=== PATIENT | female | born 1985 | race Hispanic/Latino ===

== ENCOUNTER 2018-02-26 12:08 | Inpatient (IN) | payer OTHER ==
[2018-02-26] MEDS ORDERED: HYDROcodone/Acetaminophen 5/325 mg Tablet PO PRN ×2 (12:43)
[2018-02-26] MEDS ORDERED: Methylergonovine 0.2 MG/ML VIAL IM PRN (12:43)
[2018-02-26] MEDS ORDERED: Ibuprofen 800 MG TAB PO PRN (12:43)
[2018-02-26] MEDS ORDERED: Butorphanol Tartrate 1 MG/ML VIAL SLOW IVP PRN (12:43)
[2018-02-26] MEDS ORDERED: Ondansetron HCl/PF 4 MG/2 ML Vial IVP PRN ×2 (12:43→12:49)
[2018-02-26] MEDS ORDERED: Promethazine HCl 25 MG/ML VIAL IM PRN (12:43)
[2018-02-26] MEDS ORDERED: NS / Oxytocin 40 units/1000ml 1,000 ML IV PRN (12:43)
[2018-02-26] MEDS ORDERED: Lidocaine 1% (PF) 30 ML VIAL SC PRN (12:43)
[2018-02-26] MEDS ORDERED: Misoprostol 200 MCG TAB PR PRN (12:43)
[2018-02-26] MEDS ORDERED: NS w/ Oxytocin 10 units 500 ML IV SCH (12:45)
[2018-02-26] MEDS ORDERED: Penicillin G Potassium 5 MILL.UNITS in Sodium Chloride 0.9% 100 ML IVPB SCH (12:45)
--- NOTE | 2018-02-26 12:51 | PDOC.LDHP ---
Labor and Delivery H&P Chief complaint: other (Patient is admitted for a medically indicated IOL following the diagnosis of cholestasis in with elevated liver enzymes. ) Current gestational age (weeks): 36 Due date: 03/24/18 Dating criteria: last menstrual period Grav: 4 Para: 2 OB History Details: 2006 at 40weeks 2011 at 40 weeks Current complications: other (Vanishing twins Cholestasis of ) Abnormal US findings: No Past Medical History: anemia, DIAZ, migraines, allergies. Current medications: pre- vitamins, iron Previous surgical history: other (laproscopic IUD removal) Allergies/Adverse Reactions: Allergies Allergy/AdvReac Type Severity Reaction Status Date / Time No Known Allergies Allergy Verified 02/26/18 15:44 Social history: none - Physical Exam Vital signs reviewed and normal: yes Abnormal vital signs: Occ mild elevations in BP General: NAD Heart: RRR Lungs: nonlabored breathing Abdomen: gravid Extremeties: trace edema FHT: category 2 (minimal variability, accels. no decels. BPM 145 baseline) Berger contractions every: none - Vaginal Exam cm dilated: 3 Effacement: 50% Station: -2 - OB Labs Blood type: O RH: positive Antibody Screen: negative HIV: negative RPR: negative HEPSAg: negative 1 hour GCT: negative GBS: unknown Urine drug screen: not done Rubella: immune - Assessment L&D Assessment: medically indicated induction (for cholestasis) - Plan Plan: admit to L&D, GBS antibiotic prophylaxis (for gestation), anesthesia consult for pain management (pitocin for augmentation.)
[2018-02-26] MEDS: Lactated Ringer's 1,000 ML IV SCH ×2 (13:27→19:06)
[2018-02-26 14:09] LABS: Hemoglobin 9.8 g/dL (12.0-16.0); Mean Corpuscular HGB CONC 30.8 g/dL (32.0-36.0); Mean Corpuscular Hemoglobin 22.3 pg (27.0-31.0); Mean Corpuscular Volume 72.4 fL (78.0-98.0); Mean Platelet Volume 8.9 fL (7.4-10.4); Platelet Count 323 thou/uL (130-400); RBC Distribution Width 22.7 % (11.5-14.5); Red Blood Cell (RBC) Count 4.41 mill/uL (4.20-5.40); White Blood Cell (WBC) Count 10.3 thou/uL (4.8-10.8)
[2018-02-26 14:21] LABS: ALT (SGPT) 57 U/L (8-55); AST (SGOT) 52 U/L (5-34); Albumin 3.2 g/dL (3.5-5.0); Alkaline Phosphatase 353 U/L (40-150); Anion Gap 15 mmol/L (10-20); BUN (Urea Nitrogen) 6 mg/dL (7.0-18.7); Bilirubin, Total 0.5 mg/dL (0.2-1.2); Calc. Creatinine Clearance 0 mL/min (70-130); Calcium 8.6 mg/dL (7.8-10.44); Carbon Dioxide 20 mmol/L (22-29); Chloride 108 mmol/L (98-107); Estimated GFR-MDRD Greater than 90; Globulin 3.3 g/dL (2.4-3.5); Glucose 95 mg/dL (70-105); Potassium 4.1 mmol/L (3.5-5.1); Protein, Total 6.5 g/dL (6.0-8.3); Sodium 139 mmol/L (136-145)
[2018-02-26 14:40] LABS: HBSAg Index 0.17 S/CO (0-0.99); Hep B Surf Ag Non-Reactive S/CO (NonReactive)
[2018-02-26 14:48] LABS: Syphilis Antibody Nonreactive (Nonreactive); Syphilis Antibody Index 0.08 S/CO (<1.00 Non-Reactive)
[2018-02-26 15:26] VITALS: BMI 31.2
[2018-02-26] MEDS: Penicillin G 2.5 MILL.units 2.5 MILL.UNITS in Premix Bag 1 BAG IVPB SCH (17:55)
[2018-02-26 19:03] LABS: Bilirubin Negative (Negative); Blood, Urine Negative (Negative); Clarity CLEAR (Clear); Glucose, Urine (Dipstick) Negative (Negative); Leukocyte Negative (Negative); Nitrite Negative (Negative); Protein, Urine (Dipstick) 100 mg/dL (Neg-Trace); Specific Gravity, Urine 1.006 (1.002-1.036); Urobilinogen 0.2 mg/dL (0.2-1.0)
--- NOTE | 2018-02-26 22:34 | PDOC.OPDEL ---
OB Operative/Delivery Note Delivery Dr/Surgeon: Vinayak Ordoñez CNM Pre-Delivery Diagnosis: medically indicated induction, other (36 weeks gestation ) Procedure/Post Delivery Dx: spontaneous vaginal delivery Weeks gestation: 36 Anesthesia: none - Findings A Sex: female Weight: 6 lb 4 oz - 1 min: 8 - 5 min: 9 - Additional Findings/Plan Placenta delivered: spontaneous Repaired Obstetrical Laceration: 1st degree Estimated blood loss: 200mL Post delivery plan: routine recovery
[2018-02-27] MEDS ORDERED: NS / Oxytocin 40 units/1000ml 1,000 ML IV SCH (11:41)
[2018-02-27] MEDS ORDERED: Varicella virus, LIVE 0.5 ML VIAL SC ONE (11:41)
[2018-02-27] MEDS ORDERED: Bisacodyl 10 MG SUPP PR PRN (11:41)
[2018-02-27] MEDS ORDERED: Methylergonovine 0.2 MG/ML VIAL IM PRN (11:41)
[2018-02-27] MEDS ORDERED: Measles/Mumps/Rubella 10 MCG/0.5 ML VIAL SC ONE (11:41)
[2018-02-27] MEDS ORDERED: Milk Of Magnesia 30 ML UDCUP PO PRN (11:41)
[2018-02-27] MEDS ORDERED: Benzocaine/Menthol 20-0.5% 60 ML CAN TOP PRN (11:41)
[2018-02-27] MEDS ORDERED: Misoprostol 200 MCG TAB VAG PRN (11:41)
[2018-02-27] MEDS ORDERED: Adacel (T-DAP) 0.5 ML VIAL IM ONE (11:41)
[2018-02-27] MEDS ORDERED: HYDROcodone/Acetaminophen 5/325 mg Tablet PO PRN ×2 (11:41)
[2018-02-27] MEDS ORDERED: Ondansetron HCl/PF 4 MG/2 ML Vial IVP PRN (11:41)
[2018-02-27] MEDS ORDERED: Acetaminophen 325 MG TAB PO PRN (11:43)
[2018-02-27] MEDS ORDERED: Ibuprofen 800 MG TAB PO SCH (14:00)
[2018-02-27] MEDS ORDERED: Calcium Carbonate + Vit D 250 MG TAB ONE (15:04)
[2018-02-27 16:58] LABS: ALT (SGPT) 70 U/L (8-55); AST (SGOT) 65 U/L (5-34); Albumin 2.6 g/dL (3.5-5.0); Alkaline Phosphatase 265 U/L (40-150); Anion Gap 11 mmol/L (10-20); BUN (Urea Nitrogen) 6 mg/dL (7.0-18.7); Bilirubin, Total 0.3 mg/dL (0.2-1.2); Calc. Creatinine Clearance 143 mL/min (70-130); Carbon Dioxide 21 mmol/L (22-29); Chloride 109 mmol/L (98-107); Estimated GFR-MDRD Greater than 90; Glucose 93 mg/dL (70-105); Potassium 3.8 mmol/L (3.5-5.1); Protein, Total 5.6 g/dL (6.0-8.3); Sodium 137 mmol/L (136-145)
[2018-02-27] MEDS: Ferrous Sulfate 325 MG TAB PO SCH (18:14)
[2018-02-27 18:58] LABS: #Lymphocytes 2.1 thou/uL (1.20-3.40); #Monocytes 0.8 thou/uL (0.11-0.59); #Neutrophils 8.9 thou/uL (1.40-6.50); %Basophils 0.2 % (0.0-1.0); %Eosinophils 0.2 % (0.0-10.0); %Lymphocytes 17.7 % (21.0-51.0); %Monocytes 6.6 % (0.0-10.0); %Neutrophils 75.3 % (42.0-75.0); Hemoglobin 8.2 g/dL (12.0-16.0); Mean Corpuscular HGB CONC 29.8 g/dL (32.0-36.0); Mean Corpuscular Hemoglobin 21.6 pg (27.0-31.0); Mean Corpuscular Volume 72.5 fL (78.0-98.0); Mean Platelet Volume 7.7 fL (7.4-10.4); Platelet Count 255 thou/uL (130-400); RBC Distribution Width 22.7 % (11.5-14.5); Red Blood Cell (RBC) Count 3.78 mill/uL (4.20-5.40); White Blood Cell (WBC) Count 11.8 thou/uL (4.8-10.8)
[2018-02-27] MEDS ORDERED: Docusate Calcium (SURFAK) 240 MG CAP PO SCH (21:00)
[2018-02-27] MEDS: Ibuprofen 800 MG TAB PO SCH ×2 (21:40→22:10)
[2018-02-27] MEDS: Ursodiol 300 MG CAP PO SCH (21:40)
[2018-02-27] MEDS: Docusate Calcium (SURFAK) 240 MG CAP PO SCH (21:40)
[2018-02-28] MEDS: Prenatal Vitamin 1 TAB PO SCH ×2 (00:55→09:34)
[2018-02-28] MEDS: Penicillin G 2.5 MILL.units 2.5 MILL.UNITS in Premix Bag 1 BAG IVPB SCH ×3 (00:56→04:18)
[2018-02-28] MEDS: Lactated Ringer's 1,000 ML IV SCH (00:57)
[2018-02-28] MEDS ORDERED: Lanolin Ointment 7 GM TUBE TOP PRN (03:12)
[2018-02-28 06:15] LABS: Hemoglobin 7.8 g/dL (12.0-16.0); Mean Corpuscular HGB CONC 30.5 g/dL (32.0-36.0); Mean Corpuscular Hemoglobin 22.4 pg (27.0-31.0); Mean Corpuscular Volume 73.4 fL (78.0-98.0); Mean Platelet Volume 7.2 fL (7.4-10.4); Platelet Count 243 thou/uL (130-400); RBC Distribution Width 22.6 % (11.5-14.5); Red Blood Cell (RBC) Count 3.46 mill/uL (4.20-5.40); White Blood Cell (WBC) Count 9.3 thou/uL (4.8-10.8)
[2018-02-28] MEDS: Ibuprofen 800 MG TAB PO SCH ×2 (06:25→14:12)
[2018-02-28 06:33] LABS: ALT (SGPT) 60 U/L (8-55); AST (SGOT) 53 U/L (5-34); Albumin 2.6 g/dL (3.5-5.0); Alkaline Phosphatase 235 U/L (40-150); Anion Gap 9 mmol/L (10-20); BUN (Urea Nitrogen) 8 mg/dL (7.0-18.7); Bilirubin, Total 0.4 mg/dL (0.2-1.2); Calc. Creatinine Clearance 150 mL/min (70-130); Calcium 8.2 mg/dL (7.8-10.44); Carbon Dioxide 24 mmol/L (22-29); Chloride 108 mmol/L (98-107); Estimated GFR-MDRD Greater than 90; Globulin 2.8 g/dL (2.4-3.5); Glucose 78 mg/dL (70-105); Potassium 3.8 mmol/L (3.5-5.1); Protein, Total 5.4 g/dL (6.0-8.3); Sodium 137 mmol/L (136-145)
--- NOTE | 2018-02-28 07:51 | PDOC.PP ---
Post Progress Note Post Day #: 2 Subjective: Patient is doing well. itching has not subsided that much after only one dose of the medicine. She had a bowel movement this morning PO intake tolerated: yes Flatus: yes Ambulation: yes Vital Signs (12 hours) Temp Pulse Resp BP Pulse Ox 02/27/18 21:40 97.6 F 68 20 138/89 97 Weight Weight 160 lb - Physical Examination General: NAD Cardiovascular: no m/r/g, RRR Respiratory: non-labored breathing Abdominal: + bowel sounds, lochia (minimal) Fundus firm & at: -2 Extremities: negative homans (B) Skin: no rash Perineum: intact Psychiatric: A&Ox3, normal affect Result Diagrams: 02/28/18 05:41 02/28/18 05:41 Additional Labs: Post Labs Blood Type O POSITIVE 02/26/18 13:55 Hep Bs Antigen Non-Reactive S/CO (NonReactive) 02/26/18 13:55 (1) Cholestasis during Code(s): O26.619 - LIVER AND BILIARY TRACT DISORD IN , UNSP TRIMESTER; K83.1 - OBSTRUCTION OF BILE DUCT Status: Acute (2) 36 weeks gestation of Code(s): Z3A.36 - 36 WEEKS GESTATION OF Status: Acute (3) Elevated liver enzymes Code(s): R74.8 - ABNORMAL LEVELS OF OTHER SERUM ENZYMES Status: Acute (4) Spontaneous vaginal delivery Code(s): O80 - ENCOUNTER FOR FULL-TERM UNCOMPLICATED DELIVERY Status: Acute (5) Anemia Code(s): D64.9 - ANEMIA, UNSPECIFIED Status: Acute Qualifiers: Iron deficiency anemia type: inadequate dietary iron intake - Assessment/Plan Labs: Laboratory Tests 02/28/18 05:41 Sodium 137 Potassium 3.8 Chloride 108 H Carbon Dioxide 24 Anion Gap 9 L BUN 8 Creatinine 0.63 Estimated GFR (MDRD) Greater than 90 Glucose 78 Calcium 8.2 Total Bilirubin 0.4 AST 53 H ALT 60 H Alkaline Phosphatase 235 H Serum Total Protein 5.4 L Albumin 2.6 L Globulin 2.8 Albumin/Globulin Ratio 0.9 L A: G4 now p3 sp following IOL for cholestasis of P: discharge home today with OTC pain medication Continue ursodiol 300mg TID follow up in 1 weeks for labs at [facility]. 6 week visit. hold discharge if is not discharged
[2018-02-28 08:27] VITALS: BP 144/94; TEMP 98.3
[2018-02-28] MEDS ORDERED: Prenatal Vitamin 1 TAB PO SCH (09:00)
[2018-02-28] MEDS: Ferrous Sulfate 325 MG TAB PO SCH ×2 (09:34→17:21)
[2018-02-28] MEDS: Docusate Calcium (SURFAK) 240 MG CAP PO SCH (09:35)
[2018-02-28] MEDS: Ursodiol 300 MG CAP PO SCH ×2 (09:35→14:15)
== END 2018-02-28 17:35 | disposition home or self-care (01) | DRG 805 ==
LOC: L&D/OP 12:08 → EDSTATUS 12:12 → L&D 12:12 → 3SW 12:15
PROVIDERS: ADMIT Obstetrics & Gynecology; ATTEND Obstetrics & Gynecology
PROC: 10E0XZZ Delivery of Products of Conception, External Approach (ICD-10-PCS; principal; 2018-02-26)
PROC: 3E033VJ Introduction of Other Hormone into Peripheral Vein, Percutaneous Approach (ICD-10-PCS; 2018-02-26)
PROC: 10907ZC Drainage of Amniotic Fluid, Therapeutic from Products of Conception, Via Natural or Artificial Opening (ICD-10-PCS; 2018-02-26)
PROC: 0HQ9XZZ Repair Perineum Skin, External Approach (ICD-10-PCS; 2018-02-26)
DX: O26.62 Liver and biliary tract disorders in childbirth (principal); K83.1 Obstruction of bile duct; Z37.0 Single live birth; O60.14X0 Preterm labor third trimester with preterm delivery third trimester, not applicable or unspecified; Z3A.36 36 weeks gestation of pregnancy; O70.0 First degree perineal laceration during delivery; O76 Abnormality in fetal heart rate and rhythm complicating labor and delivery; O99.02 Anemia complicating childbirth; D64.9 Anemia, unspecified
CPT/HCPCS: 36415; 80053; 81003; 85025; 85027; 86780; 86850; 86900; 86901; 87340; 90716; J2001; J2540; J7050